=== PATIENT | male | born 1985 | race Caucasian/White ===

== ENCOUNTER 2021-05-28 15:24 | Emergency (ER) | payer OTHER ==
[2021-05-28 15:36] VITALS: BP 133/77
--- NOTE | 2021-05-28 16:04 | ED Physician Documentation ---
History of Present Illness - Stated complaint Stated Complaint: NOSE PX - Chief complaint Chief Complaint: Wound - Additonal information Additional information: 36-year-old male presents emergency department for evaluation of pain on the tip of his nose. Began late yesterday evening. There is very mild redness but no obvious fluctuance or drainage. Denies any has been applying lotion or sunscreen recently. No history of acne. Review of Systems Constitutional: reports: Reviewed and negative Eyes: reports: Loss of vision Throat: reports: Reviewed and negative Cardiac: reports: Reviewed and negative Respiratory: reports: Reviewed and negative Skin: reports: Lesions PD PAST MEDICAL HISTORY - Present Medications Home Medications: Ambulatory Orders Medication Instructions Recorded Confirmed Mupirocin 2% Oint [Bactroban 2% 1 applic TOP BID #22 gm 05/28/21 Oint] Sertraline [Zoloft] 0 mg DAILY 05/28/21 05/28/21 buPROPion [Wellbutrin Sr] 0 mg DAILY 05/28/21 05/28/21 traZODone [Desyrel] 0 mg DAILY 05/28/21 05/28/21 - Allergies Allergies/Adverse Reactions: Allergies Allergy/AdvReac Type Severity Reaction Status Date / Time No Known Drug Allergies Allergy Verified 05/28/21 15:35 PD ED PE EXPANDED - General General: Alert, No acute distress - HEENT HEENT: Other (Very small pinpoint erythema on the tip of the left nares. No purulent dome significant surrounding erythema or drainage.) Results - Vitals Vitals: Vital Signs - 24 hr 05/28/21 15:31 Temperature 36.3 C Heart Rate 64 Respiratory 16 Rate Blood Pressure 133/77 O2 Saturation 98 Oxygen O2 Source Room air PD MEDICAL DECISION MAKING - ED course Complexity details: d/w patient ED course: 36-year-old gentleman presents emergency department for evaluation of a very small pimple on the tip of his left nostril. It is not amenable to lancing at this time. I recommended warm compress to be followed by an antibiotic ointment. Emergent return precautions were discussed for worsening symptoms or signs of external nasal cellulitis. Departure - Departure Disposition: 01 Home, Self Care Clinical Impression: Skin pimple Condition: Stable Record reviewed to determine appropriate education?: Yes Prescriptions: Mupirocin 2% Oint [Bactroban 2% Oint] 1 applic TOP BID #22 gm Comments: John to have a small pimple on the tip of your nose. This is not something that would benefit from lancing. I do recommend you place a warm compress on your nose for about 10 minutes 2-3 times a day and then please apply the antibiotic ointment. Most small pimple such as these will resolve without requiring systemic or oral antibiotics. Please return to the emergency department if you have worsening symptoms severe no swelling or redness.
== END 2021-05-28 16:10 | disposition home or self-care (01) ==
LOC: EDSEX → ED 15:24
DX: R23.8 Other skin changes (principal)
CPT/HCPCS: 99282; 99283

== ENCOUNTER 2021-06-05 13:00 | Outpatient (CLI) | payer OTHER ==
[2021-06-05 14:03] VITALS: BP 119/80
--- NOTE | 2021-06-05 14:03 | SLEEP CARE CONSULTATION ---
Information from patient questionnaire entered by Bre Monsalve. I have reviewed and concur with the information entered by Bre Monsalve. This document represents the service I personally performed and the decisions made by me, Mignon Caldera ARNP. History of Present Illness Service Date and Time: 06/05/2021 1300 Reason for Visit: New patient Chief Complaint: reports: Unrefreshed sleep, Snoring, Excessive daytime sleepiness, Observed pauses in breathing, Fatigue, Frequent awakenings at night Date of Onset: 10 years maybe Usual bedtime: 10 pm; midnight weekends Time it takes to fall asleep: 1 hour Snores at night: Yes Observed to quit breathing while asleep: No Sleeps alone due to snoring: Yes Number of times waking at night: 2-5 Reasons for waking at night: reports: Bathroom, Other (noise, unknown reason; coughing because his mouth is dry). denies: Choking, Snoring, Gasping for air Toss, Turn, or Twitch while sleeping: Yes Recalls having dreams: No Usually gets out of bed at: 5 am; weekends 7-8 am Feels refreshed in the morning: No Morning headache: Yes (resolves after 1-3 hours; 1-2 times week) Sleepy or fatigued during the day: Yes Ever fallen asleep while driving: No Takes day naps: Yes (daily for about 1 hours to 4 hours at times) Dreams during day naps: No Prior sleep studies: No Additional HPI information: I had the pleasure of seeing KAMILLE SHAU today regarding the possibility of him having a sleep disorder. His current complaints are unrefreshed sleep, snoring, observed pauses in breathing, frequent night awakenings, fatigue and excessive daytime sleepiness. He was referred here for a sleep study due to his depression. He states his has told him to snore and she will "jab" him to get him to stop. He will wake up frequently and can wake up with headaches 1-2 times a week. He states taking an analgesic usually will resolved the headache in a couple hours. He normally takes a nap every day for 1-4 hours. He never remembers his dreams. He has trouble remembering things and with concentration. 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 Patient is and lives in [place]. Have you smoked in the past 12 months: Yes Cigarettes per day (20/pack): 10 Years of smokin Smoking Pack Years: 2.0 Alcohol use: No Caffeine use: Yes Caffeine amount and frequency: 2-5 drinks daily Family History Family history of sleep disordered breathing: Yes Family Hx Sleep Apnea: Father: Snoring Allergies and Home Medications Drug allergies reviewed: Yes (NKDA) Home medication list reviewed: Yes Allergy and home medication list: Sertraline Wellbutrin Trazadone, prn sleep Review of Systems Weight gain over past 5 years: 30 Weight loss over past 5 years: 20 Cardiovascular: denies: high blood pressure Gastrointestinal: denies: heartburn Neurological: reports: headaches Psychiatric: reports: depression Ear/Nose/Throat: reports: dry mouth/throat, wisdom teeth removed. denies: tonsillectomy Endocrine: reports: sluggishness. denies: thyroid disease Immunologic: reports: allergies to food or environment (maybe seasonal) Physical Exam Blood Pressure: 119/80 Cuff size: wrist Heart Rate: 65 O2 Saturation: 98 Height: 6 ft 2 in Weight: 200 lb Body Mass Index: 25.7 BMI Classification: Overweight Neck circumference: 16 (inches) Nostrils: patent to airflow Mouth and throat: narrow oropharynx Soft palate: long Hard palate: normal Uvula visualization: 50% Mallampati Class II Tongue: enlarged in size with teeth cota on lateral edges Tonsils: 1+ Heart: regular rate and rhythm Lungs: clear bilaterally Impression and Plan 1. Suspected Obstructive Sleep Apnea-Hypopnea Syndrome, as suggested by a history of loud and irregular snoring, observed cessation of breath while asleep, morning headache, frequent awakening during the night, unrefreshed sleep, cognitive impairment, and excessive daytime sleepiness. Narrow oropharynx and obesity are common predisposing factors for obstructive sleep apnea-hypopnea syndrome. I recommend proceeding to polysomnography to confirm the diagnosis and to assess severity. If the patient has significant sleep disordered breathing, a manual CPAP titration study will also be performed to find the optimal treatment pressure. I informed the patient of what the sleep studies involve and after some discussion, obtained agreement to proceed. The pathophysiology of obstructive sleep apnea-hypopnea syndrome was discussed with the patient and health risks of cardiovascular and cerebrovascular disease if not treated. AAS brochure for obstructive sleep apnea-hypopnea syndrome given and reviewed. Risks of drowsy driving discussed in detail and patient advised to avoid long distance driving and to fur puller at the first sign of drowsiness. Patient agreed to plan. * Schedule polysomnography +- manual CPAP titration study and return in 1-2 weeks after the study to discuss result and initiate therapy. * Avoid long distance driving or driving when feeling sleepy. * Avoid alcohol, sedative and muscle relaxant around bedtime. * Attempt to lose weight. * Review instructions provided by trained office staff on how to prepare for the sleep study. * Return for follow-up after sleep study completed. Counseling Topics: Weight loss health impact Visit Type: In Office Time Spent with Patient (minutes): 30 Provider Statement: I spent 100% of the Face to Face Visit with the patient with greater than 50% spent counseling the patient and coordination of care.
== END 2021-06-05 13:01 | disposition home or self-care (01) ==
LOC: SC 13:00
PROVIDERS: ATTEND Nurse Practitioner Family
DX: R06.83 Snoring (principal); R06.81 Apnea, not elsewhere classified; R51.9 Headache, unspecified; G47.8 Other sleep disorders; R41.89 Other symptoms and signs involving cognitive functions and awareness; F17.200 Nicotine dependence, unspecified, uncomplicated; F32.9 Major depressive disorder, single episode, unspecified; G47.10 Hypersomnia, unspecified
CPT/HCPCS: 99203; 99212

== ENCOUNTER 2021-06-09 13:47 | Outpatient (CLI) | payer OTHER | END 2021-06-09 13:48 | disposition home or self-care (01) | LOC: SC 13:47 | PROVIDERS: ATTEND Nurse Practitioner Family | DX: R06.83 Snoring (principal); R53.83 Other fatigue; G47.10 Hypersomnia, unspecified; R06.81 Apnea, not elsewhere classified; E66.3 Overweight; Z68.25 Body mass index [BMI] 25.0-25.9, adult | CPT/HCPCS: 95806 ==

== ENCOUNTER 2021-06-26 11:22 | Outpatient (CLI) | payer OTHER ==
--- NOTE | 2021-06-26 11:31 | SLEEP CARE CONSULTATION ---
Information from patient questionnaire entered by Bre Monsalve. I have reviewed and concur with the information entered by Bre Monsalve. This document represents the service I personally performed and the decisions made by , Mignon Caldera ARNP. History of Present Illness Service Date and Time: 06/26/2021 112 Initial [place] Sleepiness Scale score: 14 (in 2020) Current [place] Sleepiness Scale score: 10 Additional HPI information: KAMILLE SAHU returns via Telehealth visit for follow up and results of the recently performed home sleep study. The patient was informed of the following findings: no significant sleep disord ered breathing with an average AHI of 1.1 and elvira oxygen saturation of 89%. I explained the pathophysiology behind obstructive sleep apnea. Patient does not have sleep apnea and was advised how weight gain could increase the risk of developing sleep apnea in the future. I strongly encouraged the patient to lose weight. Patient has moderate to heavy snoring. Snoring can be reduced by weight loss. Weight loss is best achieved with diet consult. Patient instructed to contact PCP for referral. Snoring can also be treated with an oral appliance from a dentist. Advised to check insurance coverage. In addition, an ENT evaluation can be do to see if other treatment is indicated. Patient counseled not drink alcohol less than 4 hours before bedtime as it can increase snoring and apnea. Patient was cautioned about risks of drowsy driving until sleepiness symptoms resolve. Sleep Study - Results Type of Sleep Study: Home sleep study Prior sleep studies: No Polysomnography/Home Sleep Study results: Physician Impression: The quality of the study is good. The length of the study is adequate (> 240 minutes). Please also see the tabulated and graphic data. 1. no evidence of sleep disordered breathing, with an AHI of 1.1/hr and elvira SaO2 of 89%. During the study, the patient had 4 apneas (4 obstructive, 0 central, 0 mixed) and 2 hypopneas. The longest episode lasted 57.5 seconds. The patient only slept supine during this study (supine AHI was 1.1 and non-supine, 0.00). 2. Hypoxemia (ICD-10 R09.02), minimal, with the lowest oxygen saturation of 89 % and 0.1 minutes with SaO2 under 90%. Baseline oxygen saturation was normal (Average oxygen saturation was 92%). Allergies and Home Medications Home medication list reviewed: Yes (no changes) Review of Systems Review of systems same as previous: Yes (no changes) Physical Exam Vital signs obtained and entered by: Telehealth visit to reduce exposure during Covid pandemic Height: 6 ft 2 in Impression and Plan Snoring but no significant sleep disordered breathing. Patient advised that often weight loss will reduce snoring as well as apnea risk. An oral appliance can also be used for snoring. This would require a dental consultation. Patient cautioned not to use other online appliances as can cause bite issues. A list of accredited dentists in [facility] and one local dentist who makes oral appliances is available in office. Patient is advised to check if insurance will cover. An ENT consult can also be helpful to determine if any other treatment is an option. * Attempt to lose weight * Avoid alcohol consumption near bedtime * The patient is cautioned about driving until sleepiness is completely resolved. * Return as needed. Counseling Topics: Weight loss health impact Visit Type: Telehealth Video Video Type: VSee Patient Location: Home Location of Provider: Office Patient agrees and consents to this telehealth visit type: Yes Patient agrees to have their insurance billed: Yes Time Spent with Patient (minutes): 11 Provider Statement: I spent 100% of the Telehealth Video Call with the patient with greater than 50% spent counseling the patient and coordination of care.
== END 2021-06-26 11:23 | disposition home or self-care (01) ==
LOC: SC 11:22
PROVIDERS: ATTEND Nurse Practitioner Family
DX: R06.83 Snoring (principal)

== ENCOUNTER 2023-11-04 13:55 | Outpatient (CLI) | payer OTHER ==
--- NOTE | 2023-11-04 21:47 | XRAY Report ---
PROCEDURE: Foot 3 View RT INDICATIONS: PAIN IN RIGHT FOOT TECHNIQUE: 3 views of the foot were acquired. COMPARISON: None. FINDINGS: Bones: No fractures or dislocations. No suspicious bony lesions. Soft tissues: No suspicious soft tissue calcifications or masses. IMPRESSION: No acute bony abnormality. Fifth toe demonstrates no radiographic abnormality. Reviewed by: Juan J Ladd MD on 11/04/2023 9:46 PM PST Approved by: Juan J Ladd MD on 11/04/2023 9:46 PM PST Station ID: [id number]
== END 2023-11-04 13:56 | disposition home or self-care (01) ==
LOC: DI 13:55
PROVIDERS: ATTEND Physician Assistant Medical
DX: M79.671 Pain in right foot (principal)

== ENCOUNTER 2024-02-22 12:18 | Emergency (ER) | payer OTHER ==
[2024-02-22 12:34] VITALS: O2SAT 98
--- NOTE | 2024-02-22 12:52 | ED Physician Documentation ---
PD HPI HEENT - Stated complaint Stated Complaint: RT EAR PX - Chief complaint Chief Complaint: Heent - History obtained from History obtained from: Patient - Additional information Additional information: A weeks worth of increasing right ear pain. Hearing is unaffected. New URI symptoms. States he has not seen the tip of his ear buds for about a week 2. PD PAST MEDICAL HISTORY - Past Medical History Past Medical History: Yes Psych: Depression - Past Surgical History Past Surgical History: Yes - Present Medications Home Medications: Ambulatory Orders Medication Instructions Recorded Confirmed Lurasidone HCl 20 mg PO DAILY 02/22/24 02/22/24 Neomycin/Polymyx/Hc Otic Drops 4 drops OT TID #1 each 02/22/24 [Cortisporin Ear Susp] QUEtiapine [SEROquel] 50 mg PO QPM PRN 02/22/24 02/22/24 modafiniL [Modafinil] 200 mg PO DAILY 02/22/24 02/22/24 - Allergies Allergies/Adverse Reactions: Allergies Allergy/AdvReac Type Severity Reaction Status Date / Time No Known Drug Allergies Allergy Verified 02/22/24 12:26 - Social History Does the pt smoke?: No Smoking Status: Former smoker Does the pt drink ETOH?: No Does the pt have substance abuse?: No - Immunizations Immunizations are current?: Yes - POLST Patient has POLST: No PD ED PE NORMAL - Vitals Vital signs reviewed: Yes - General General: Alert and oriented X 3, No acute distress - HEENT HEENT: Other (There is a black foreign body in the right ear canal. Subsequent to removal he does have mild external otitis.) - Neuro Neuro: Alert and oriented X 3 Results - Vitals Vitals: Vital Signs - 24 hr 02/22/24 12:28 Temperature 36.4 C L Heart Rate 71 Respiratory 16 Rate Blood Pressure 129/61 O2 Saturation 98 Oxygen O2 Source Room air Procedures - FB removal FB location: Ear (Right ear) Removal method: Foreceps FB removal aftercare: Patient tolerated well, Removed successfully Departure - Departure Disposition: 01 Home, Self Care Clinical Impression: Foreign body in right ear Qualifiers: Encounter type: initial encounter Qualified Code(s): T16.1XXA - Foreign body in right ear, initial encounter External otitis of right ear Qualifiers: Otitis externa type: other infective Chronicity: acute Qualified Code(s): H60.391 - Other infective otitis externa, right ear Condition: Good Record reviewed to determine appropriate education?: Yes Instructions: ED Foreign Body Ear Canal, ED Otitis Externa Prescriptions: Neomycin/Polymyx/Hc Otic Drops [Cortisporin Ear Susp] 4 drops OT TID #1 each Comments: You were seen today for a plastic foreign body in the right ear canal that was successfully removed. You do have some inflammation and infection of the ear canal since it has been in there for so long for which I wrote a prescription for some antibiotic drops to go in there. Return if worse.
[2024-02-22 13:13] VITALS: BP 127/64
== END 2024-02-22 13:08 | disposition home or self-care (01) ==
LOC: ED 12:18
DX: H60.391 Other infective otitis externa, right ear (principal); T16.1XXA Foreign body in right ear, initial encounter; W44.9XXA Unspecified foreign body entering into or through a natural orifice, initial encounter; Z87.891 Personal history of nicotine dependence; Z79.899 Other long term (current) drug therapy
CPT/HCPCS: 69210; 99282